=== PATIENT | female | born 1980 | race Caucasian/White ===

== ENCOUNTER 2018-08-18 08:42 | Emergency (ER) | END 2018-08-18 09:53 | disposition home or self-care (01) ==

== ENCOUNTER 2019-03-02 08:17 | Emergency (ER) | payer MEDICAID ==
[~2019-03-02] VITALS: Ht 170.2 cm; Wt 70.0 kg
[~2019-03-02 08:17] MED LIST: CYCL10TA7 PO; HYDR-4011 PO; MED4DP PO; NAPR-985 PO
[2019-03-02 08:18] VITALS: Ht 170.2 cm; Wt 70.0 kg
[2019-03-02] MEDS ORDERED: IPRATROPIUM (NEB) 0.5 MG/2.5 ML AMP NEB STA (08:33)
[2019-03-02] MEDS ORDERED: ALBUTEROL 0.083% (NEB) 2.5 MG/3 ML AMP NEB STA (08:33)
--- NOTE | 2019-03-02 08:38 | ERD ---
ER Documentation Chief Complaint Chief Complaint asthma attack; cough; headache HPI Patient is a 38 years old female with PMHx of Asthma presenting to the clinic for Cough w/ green sputum, Difficulty breathing, and mild headaches x 3 days. Patient reports using Flovent HFA without resolution. Patient denies fever, c hills, night sweats, nausea, emesis, diarrhea, abdominal pain. ROS All systems reviewed and are negative except as per history of present illness. Medications Home Meds Active Scripts [id number]-Rfzllmluop Hb* (Guaifenesin* DM Syrup) 120 Ml Syrup, 10 ML PO Q4H PRN for COUGH for 7 Days, #200 ML Prov:PREMA TAVARES PA-C 03/02/19 Nebulizer (Compact Compressor Nebulizer) 1 Each Each, EACH MC, #1 Prov:PREMA TAVARES PA-C 03/02/19 Albuterol Sulfate* (Albuterol Sulfate* Neb) 0.083%-3 Ml Neb, 2.5 MG NEB Q4H, #30 VIAL Prov:PREMA TAVARES PA-C 03/02/19 Cyclobenzaprine Hcl* (Cyclobenzaprine Hcl*) 10 Mg Tablet, 10 MG PO TID, #15 TAB Prov:NILA MORRIS PA-C 08/18/18 Hydrocodone/Acetaminophen ([place] 5-325 Tablet) 1 Each Tablet, 1 TAB PO Q6H PRN for PAIN, #7 TAB Prov:NILA MORRIS PA-C 08/18/18 Methylprednisolone* (Medrol* DOSE PACK) 4 Mg/Dose-Pack Tab.ds.pk, 4 MG PO . DIRECTED, #1 PACKET Prov:NILA MORRIS PA-C 08/18/18 Naproxen* (Naprosyn*) 500 Mg Tablet, 500 MG PO BID PRN for PAIN AND/OR INFLAMMATION, #30 TAB Prov:NILA MORRIS PA-C 08/18/18 Allergies Allergies: Coded Allergies: No Known Drug Allergies (Verified Allergy, Unknown, 12/12/13) PMhx/Soc History of Surgery: No Anesthesia Reaction: No Hx Neurological Disorder: No Hx Respiratory Disorders: No Hx Cardiac Disorders: No Hx Psychiatric Problems: No Hx Miscellaneous Medical Probl: No Hx Alcohol Use: No Hx Substance Use: No Hx Tobacco Use: No Physical Exam Vitals Vital Signs Date Temp Pulse Resp B/P (MAP) Pulse Ox O2 O2 Flow FiO2 Time Delivery Rate 03/02/19 76 20 98 21 08:55 03/02/19 97.1 83 20 148/75 100 08:18 (99) Physical Exam Const: No acute distress Head: Atraumatic Eyes: Normal Conjunctiva ENT: Normal External Ears, Nose and Mouth. Neck: Full range of motion. No meningismus. Resp: Clear to auscultation bilaterally Cardio: Regular rate and rhythm, no murmurs Abd: Soft, non tender, non distended. Normal bowel sounds Skin: No petechiae or rashes Neur: Awake and alert Psych: Normal Mood and Affect Results 24 hrs Current Medications Medications Dose Sig/Eulalio Start Time Status Last (Trade) Ordered Route PRN Stop Time Admin Dose Reason Admin Albuterol 2.5 mg ONCE STAT 03/02/19 DC 03/02/19 (Proventil NEB 08:33 08:54 0.083% (Neb)) 03/02/19 08:34 Ipratropium 1 mg ONCE STAT 03/02/19 DC 03/02/19 [place] NEB 08:33 08:54 (Atrovent 03/02/19 08:34 0.02% (Neb)) Procedures/MDM Patient was seen and evaluated for cough. Patient was given Nebulizer treatment in clinic as per patient's request with significant improvement in symptoms. Patient has an unremarkable physical exam and does not need further work up. Low suspicion for pneumonia or respiratory distress. Patient is stable and ready for discharge. Patient will be given guaifenesin and nebulizer. F/U with PCP. Departure Diagnosis: Primary Impression: Asthma Asthma severity: mild Asthma persistence: intermittent Asthma complication type: uncomplicated Qualified Codes: J45.20 - Mild intermittent asthma, uncomplicated Patient Instructions: Asthma Referrals: [facility] Additional Instructions: Paciente aconseja volver a Departamento de urgencias inmediatamente para sntomas nuevos o que empeoran . Paciente aconseja posteriores con el PCP en 2-3 de la rosa . Paciente verbaliza la comprehensin y est de acuerdo con el tratamiento y el curso de accin. Si el paciente no tiene ninguna de atencin primaria pueden seguir con [facility] [id number] [place] [address] o [facility] + [address] [phone] PREMA TAVARES PA-C Mar 02, 2019 08:38
[2019-03-02] MEDS ORDERED: ALBU2.5V3 NEB (08:40)
[2019-03-02] MEDS ORDERED: GUAI120S25 PO (08:40)
[2019-03-02] MEDS ORDERED: NEBU1KIT3 MC (08:40)
[2019-03-02 09:21] VITALS: BP 135/75; PULSE 66; RESP 18
== END 2019-03-02 09:23 | disposition home or self-care (01) ==
LOC: FTE 08:17
DX: J45.20 Mild intermittent asthma, uncomplicated (principal)
CPT/HCPCS: 94664; Z7502; Z7610